=== PATIENT | female | born 1980 | race Two or more races ===

== ENCOUNTER → 2018-12-23 | Outpatient (CLI) | payer BC ==
[2018-12-23 13:38] LABS: BASO % 0.9 % (0.0-1.0); EOS % 0.2 % (0.0-3.0); HEMATOCRIT 40.7 % (36.0-47.0); HEMOGLOBIN 13.7 g/dl (12.0-15.5); LYMPH # 1.9 10^3/uL (1.5-4.5); LYMPH % 42.9 % (24.0-44.0); MEAN CORPUSCULAR HEMOGLOBIN 30.9 pg (27.0-33.0); MEAN CORPUSCULAR HGB CONC 33.7 g/dl (32.0-36.5); MEAN CORPUSCULAR VOLUME 91.7 fl (80.0-96.0); MONO # 0.4 10^3/uL (0.0-0.8); MONO % 9.9 % (0.0-5.0); NEUTROPHILS % 45.9 % (36.0-66.0); PLATELET COUNT, AUTOMATED 193 10^3/uL (150-450); RED BLOOD COUNT 4.44 10^6/uL (4.00-5.40); WHITE BLOOD COUNT 4.4 10^3/uL (4.0-10.0)
[2018-12-23 13:46] LABS: ALBUMIN 3.8 GM/DL (3.2-5.2); ALT/SGPT 26 U/L (12-78); BILIRUBIN,TOTAL 0.7 MG/DL (0.2-1.0); BLOOD UREA NITROGEN 13 MG/DL (7-18); CALCIUM LEVEL 8.7 MG/DL (8.5-10.1); CARBON DIOXIDE LEVEL 27 MEQ/L (21-32); CHLORIDE LEVEL 108 MEQ/L (98-107); CREATININE FOR GFR 0.73 MG/DL (0.55-1.30); FERRITIN 31 NG/ML (8-252); FREE T4 1.13 NG/DL (0.76-1.46); GLOMERULAR FILTRATION RATE > 60.0 (>60); GLUCOSE, FASTING 84 MG/DL (70-100); IRON (FE) 109 UG/DL (50-170); POTASSIUM SERUM 4.5 MEQ/L (3.5-5.1); SODIUM LEVEL 138 MEQ/L (136-145); THYROID PEROXIDASE ANTIBODY 32.5 U/ML (<60.0); TOTAL IRON BINDING CAPACITY 321 UG/DL (250-450); TOTAL PROTEIN 7.3 GM/DL (6.4-8.2)
[2018-12-23 14:41] LABS: ERYTHROCYTE SEDIMENTATION RATE 22 mm/hr (0-20)
[2018-12-25 00:06] LABS: ANTI DOUBLE STRAND-DNA AB 1 IU/mL (0-9); ANTINUCLEAR ANTIBODIES DIRECT Positive (Negative); Lyme Disease IgG/IgM Antibodie <0.91 ISR (0.00-0.90); Lyme Disease IgM Ab Quantitati <0.80 index (0.00-0.79); RNP ANTIBODIES 1.1 AI (0.0-0.9); SJOGREN'S ANTI SS-A <0.2 AI (0.0-0.9); SJOGREN'S ANTI SS-B <0.2 AI (0.0-0.9); SMITH ANTIBODIES <0.2 AI (0.0-0.9)
[2018-12-27 14:16] LABS: VITAMIN D 1,25 DIHYDROXY 37.8 pg/mL (19.9-79.3)
== END ==
LOC: M SMT 08:53
PROVIDERS: ATTEND Physician Assistant
DX: R53.83 Other fatigue (principal)

== ENCOUNTER → 2019-10-27 | Outpatient (CLI) | payer BC ==
[2019-10-27 12:08] LABS: BASO % 0.7 % (0.0-1.0); EOS % 0.5 % (0.0-3.0); HEMATOCRIT 41.5 % (36.0-47.0); HEMOGLOBIN 13.8 g/dl (12.0-15.5); LYMPH % 45.7 % (24.0-44.0); MEAN CORPUSCULAR HEMOGLOBIN 30.7 pg (27.0-33.0); MEAN CORPUSCULAR HGB CONC 33.3 g/dl (32.0-36.5); MEAN CORPUSCULAR VOLUME 92.2 fl (80.0-96.0); MONO # 0.4 10^3/uL (0.0-0.8); MONO % 9.1 % (0.0-5.0); NEUTROPHILS # 1.9 10^3/uL (1.5-8.5); NEUTROPHILS % 43.8 % (36.0-66.0); PLATELET COUNT, AUTOMATED 206 10^3/uL (150-450); WHITE BLOOD COUNT 4.3 10^3/uL (4.0-10.0)
[2019-10-27 12:25] LABS: ALBUMIN 3.9 GM/DL (3.2-5.2); ALT/SGPT 28 U/L (12-78); BILIRUBIN,TOTAL 0.9 MG/DL (0.2-1.0); BLOOD UREA NITROGEN 9 MG/DL (7-18); CALCIUM LEVEL 9.4 MG/DL (8.5-10.1); CARBON DIOXIDE LEVEL 30 MEQ/L (21-32); CHLORIDE LEVEL 106 MEQ/L (98-107); CHOLESTEROL LEVEL 163 MG/DL (<200); CHOLESTEROL RISK RATIO 2.144 (<5); CREATININE FOR GFR 0.77 MG/DL (0.55-1.30); FREE T4 1.06 NG/DL (0.76-1.46); GLOMERULAR FILTRATION RATE > 60.0 (>60); GLUCOSE, FASTING 91 MG/DL (70-100); HDL CHOLESTEROL 76 MG/DL (>40); LDL CHOLESTEROL 79 MG/DL (<100); NON-HDL-C 87 MG/DL; POTASSIUM SERUM 4.6 MEQ/L (3.5-5.1); SODIUM LEVEL 140 MEQ/L (136-145); TOTAL PROTEIN 7.1 GM/DL (6.4-8.2); TRIGLYCERIDES LEVEL 42 MG/DL (<150)
== END ==
LOC: M PLALAB 08:45
PROVIDERS: ATTEND Family Medicine
DX: Z13.29 Encounter for screening for other suspected endocrine disorder (principal); Z13.220 Encounter for screening for lipoid disorders; Z13.0 Encounter for screening for diseases of the blood and blood-forming organs and certain disorders involving the immune mechanism

== ENCOUNTER → 2020-08-09 | Outpatient (REF) | payer BC | LOC: M LAB REF 12:15 | PROVIDERS: ATTEND Physician Assistant | DX: Z11.59 Encounter for screening for other viral diseases (principal) ==

== ENCOUNTER → 2021-09-26 | Outpatient (CLI) | payer BC ==
[~2021-09-26] MED LIST: PROHANCE 279.3MG/ML 15ML VIAL As Ordered ONE; PROHANCE 279.3MG/ML 5ML VIAL As Ordered ONE
== END ==
LOC: M RAD 10:26
PROVIDERS: ATTEND Family Medicine
DX: R92.8 Other abnormal and inconclusive findings on diagnostic imaging of breast (principal)
CPT/HCPCS: A9576; C8908

== ENCOUNTER → 2022-01-20 | Outpatient (CLI) | payer BC ==
[2022-01-20 11:10] LABS: RHEUMATOID FACTOR QUANT < 10.0 IU/ML (<15.0)
[2022-01-20 11:43] LABS: VITAMIN B12 LEVEL 649 PG/ML (247-911)
[2022-01-21 23:07] LABS: ANA (HEP2) Negative (.); CYCLIC CITRULLINATED PEPTIDE < 1 units (0-19)
== END ==
LOC: M PLALAB 08:45
PROVIDERS: ATTEND Family Medicine
DX: R20.2 Paresthesia of skin (principal); R53.83 Other fatigue

== ENCOUNTER → 2022-02-10 | Outpatient (CLI) | payer BC | LOC: M PLAIMG 01-30 08:23 | PROVIDERS: ATTEND Family Medicine | DX: M47.816 Spondylosis without myelopathy or radiculopathy, lumbar region (principal); R53.1 Weakness; R20.2 Paresthesia of skin ==

== ENCOUNTER → 2022-10-09 | Outpatient (CLI) | payer BC | LOC: M RAD 10:27 | PROVIDERS: ATTEND Family Medicine | DX: R92.8 Other abnormal and inconclusive findings on diagnostic imaging of breast (principal) | CPT/HCPCS: A9576; C8908 ==

== ENCOUNTER → 2023-05-25 | Outpatient (REF) | payer BC | LOC: M SFHCDERM 17:52 | PROVIDERS: ATTEND Physician Assistant | DX: D22.4 Melanocytic nevi of scalp and neck (principal) ==

== ENCOUNTER → 2023-09-14 | Outpatient (CLI) | payer BC ==
[~2023-09-14] MED LIST changes: -PROHANCE 279.3MG/ML 15ML VIAL As Ordered ONE; +PROHANCE 279.3MG/ML 15ML VIAL ONE; -PROHANCE 279.3MG/ML 5ML VIAL As Ordered ONE; +PROHANCE 279.3MG/ML 5ML VIAL ONE
== END ==
LOC: M PLAIMG 14:56
PROVIDERS: ATTEND Family Medicine
DX: R92.8 Other abnormal and inconclusive findings on diagnostic imaging of breast (principal); R92.333 Mammographic heterogeneous density, bilateral breasts; N60.11 Diffuse cystic mastopathy of right breast; N60.12 Diffuse cystic mastopathy of left breast
CPT/HCPCS: A9576; C8908

== ENCOUNTER → 2024-05-30 | Outpatient (CLI) | payer BC | LOC: M RAD 15:06 | PROVIDERS: ATTEND Family Medicine | DX: N23 Unspecified renal colic (principal) ==